=== PATIENT | female | born 1965 | race Caucasian/White ===

== ENCOUNTER 2022-08-06 09:45 | Emergency (ER) | payer OTHER ==
[2022-08-06 09:54] VITALS: BP 144/76; PULSE 98; RESP 18; TEMP 98.1; BMI 23.8
[2022-08-06 11:43] LABS: BASO % 1.2 % (0-2.0); EOS % 2.8 % (0-4.5); HEMATOCRIT 40.2 % (32.4-45.2); HEMOGLOBIN 13.3 GM/dL (10.7-15.3); LYMPH % 41.7 % (8-40); MCH 29.4 pg (25.7-33.7); MCHC 33.1 g/dl (32.0-36.0); MEAN CELL VOLUME 88.7 fl (80-96); MEAN PLT VOLUME 8.6 fl (7.5-11.1); NEUT % 49.3 % (42.8-82.8); PLATELET COUNT 220 10^3/uL (134-434); RBC 4.53 M/mm3 (3.60-5.2); RDW 12.4 % (11.6-15.6); WHITE BLOOD COUNT 4.1 K/mm3 (4.0-10.0)
[2022-08-06 12:02] LABS: CALCIUM 9.7 mg/dL (8.5-10.1)
[2022-08-06 12:03] LABS: ALBUMIN 3.5 g/dl (3.4-5.0); BLOOD UREA NITROGEN 11.2 mg/dL (7-18)
[2022-08-06 12:06] LABS: CREATININE 0.8 mg/dL (0.55-1.3)
[2022-08-06 12:07] LABS: BILIRUBIN,TOTAL 0.4 mg/dL (0.2-1)
[2022-08-06 12:08] LABS: TOT PROT 6.5 g/dl (6.4-8.2)
[2022-08-06 12:15] LABS: EPI CELLS 1 /uL (0-25.1); HYALINE CASTS 0 /uL (0-3.1); URINE APPEARANCE CLEAR; URINE BACTERIA 5 /uL (0-1359); URINE BILIRUBIN NEGATIVE (NEGATIVE); URINE COLOR YELLOW; URINE GLUCOSE (UA) NEGATIVE (NEGATIVE); URINE KETONE NEGATIVE (NEGATIVE); URINE LEUK ESTERASE NEGATIVE (NEGATIVE); URINE NITRITE NEGATIVE (NEGATIVE); URINE PROTEIN NEGATIVE (NEGATIVE); URINE RBC 36 /uL (0-23.9); URINE UROBILINOGEN 0.2 mg/dL (0.2-1.0); URINE WBC 5 /uL (0-25.8)
== END 2022-08-06 13:17 | disposition home or self-care (01) ==
LOC: JER 09:45
DX: N95.0 Postmenopausal bleeding (principal); N84.2 Polyp of vagina
CPT/HCPCS: 36415; 76830-TC; 80053; 81003; 85025; 86850; 86900; 86901; 87086; 99284-25